=== PATIENT | female | born 1960 | race Caucasian/White ===

== ENCOUNTER 2017-08-31 01:32 | Inpatient (IN) | payer MEDICARE, MEDICAID ==
[~2017-08-31] VITALS: Ht 160 cm; Wt 124.7 kg
[2017-08-31 02:55] LABS: APPEARANCE HAZY (CLEAR); BACTERIA FEW /hpf (NONE SEEN); BILIRUBIN NEGATIVE (NEGATIVE); COLOR YELLOW (YELLOW); EPITHELIAL CELLS RARE /hpf (0-5); GLUCOSE NEGATIVE (NEGATIVE); KETONE NEGATIVE (NEGATIVE); NITRITE NEGATIVE (NEGATIVE); PROTEIN TRACE mg/dL (NEGATIVE); RED CELLS - URINE 0-5 /hpf (0-5); UROBILINOGEN NORMAL (NORMAL)
[2017-08-31 02:57] LABS: BASOPHILS 0.2 % (0-2); EOSINOPHILS 0.1 % (0-7); HEMATOCRIT 42.3 % (36.0-48.0); HEMOGLOBIN 13.6 g/dL (12-16); IMMATURE GRANULOCYTES 0.3 % (0-5); LYMPHOCYTES 6.4 % (15-50); MCH 29.4 pg (26.0-34.0); MCHC 32.2 g/dL (31.0-37.0); MCV 91.4 fL (80.0-100.0); MONOCYTES 1.1 % (2-11); NEUTROPHILS 91.9 % (40-80); PLATELET COUNT 247 10x3/uL (130-400); RBC 4.63 10x6/uL (4.00-5.40); RDW 15.6 % (11.5-14.5); WBC 13.1 10x3/uL (4.8-10.8)
[2017-08-31 03:22] LABS: ALBUMIN 2.9 g/dL (3.4-5.0); ALKALINE PHOSPHATASE 157 U/L (46-116); ALT (SGPT) 17 U/L (10-68); BILIRUBIN - TOTAL 0.27 mg/dL (0.2-1.3); CALC OSMOLALITY 289 mosm/kg (275-300); CALCIUM 8.6 mg/dL (8.5-10.1); CARBON DIOXIDE 27.2 mmol/L (21.0-32.0); CHLORIDE - SERUM 107 mmol/L (98-107); CREATININE - SERUM 1.3 mg/dL (0.6-1.3); GLUCOSE 136 mg/dL (74-106); POTASSIUM - SERUM 4.2 mmol/L (3.5-5.1); PROTEIN - SERUM 7.6 g/dL (6.4-8.2); SODIUM 142 mmol/L (136-145); UREA NITROGEN 26 mg/dL (7-18); eGFR NON AFRICAN AMERICAN 45 mL/min (90-120)
[2017-08-31 03:39] LABS: CREATINE KINASE 27 UL (21-215); PRO BNP 251 pg/mL (0-125)
[2017-08-31 03:45] LABS: TROPONIN-I < 0.017 ng/mL (0.000-0.060)
[2017-08-31] MEDS ORDERED: LEXAPRO10 MG PO (04:21)
[2017-08-31] MEDS ORDERED: SYMBICORT 16010.2 GM INH (04:22)
[2017-08-31] MEDS ORDERED: CATAPRES0.3 MG PO (04:22)
[2017-08-31] MEDS ORDERED: CARDURA8 MG PO (04:24)
[2017-08-31] MEDS ORDERED: INDOCIN25 MG PO (04:25)
[2017-08-31] MEDS ORDERED: ZANAFLEX6 MG PO (04:26)
[2017-08-31] MEDS ORDERED: LIPITOR80 MG PO (04:27)
[2017-08-31] MEDS ORDERED: PLAVIX75 MG PO (04:27)
[2017-08-31] MEDS ORDERED: DIOVAN320 MG PO (04:28)
[2017-08-31] MEDS ORDERED: COREG25 MG PO (04:28)
[2017-08-31] MEDS ORDERED: ATIVAN0.5 MG PO (04:28)
[2017-08-31] MEDS ORDERED: NITROSTAT0.4 MG SL (04:29)
[2017-08-31] MEDS ORDERED: MINITRAN TD (04:30)
[2017-08-31] MEDS ORDERED: LYRICA100 MG PO (04:44)
[2017-08-31 06:10] VITALS: BP 128/86; BMI 45.4
[2017-08-31 08:19] VITALS: BP 108/62
[2017-08-31 11:52] VITALS: BP 132/74
[2017-08-31 13:17] VITALS: Ht 160 cm; Wt 124.7 kg
[2017-08-31 13:31] LABS: CKMB 0.2 U/L (0.0-3.6); CREATINE KINASE 30 UL (21-215); TROPONIN-I < 0.017 ng/mL (0.000-0.060)
[2017-08-31 15:53] VITALS: BP 163/86
[2017-08-31 17:54] LABS: CKMB 0.2 U/L (0.0-3.6); CREATINE KINASE 32 UL (21-215); TROPONIN-I < 0.017 ng/mL (0.000-0.060)
[2017-08-31 20:34] VITALS: BP 165/89
[2017-09-01] VITALS (8 sets, daily range): BP systolic 124–200; BP diastolic 71–120
[2017-09-01 00:43] LABS: CKMB 0.5 U/L (0.0-3.6); CREATINE KINASE 28 UL (21-215); TROPONIN-I < 0.017 ng/mL (0.000-0.060)
[2017-09-01 01:40] LABS: CREATINE KINASE 26 UL (21-215); TROPONIN-I < 0.017 ng/mL (0.000-0.060)
[2017-09-01 04:08] LABS: BASOPHILS 0 % (0-2); EOSINOPHILS 0 % (0-7); HEMATOCRIT 38.2 % (36.0-48.0); HEMOGLOBIN 12.2 g/dL (12-16); IMMATURE GRANULOCYTES 0.3 % (0-5); LYMPHOCYTES 5.5 % (15-50); MCH 29.4 pg (26.0-34.0); MCHC 31.9 g/dL (31.0-37.0); MEAN PLATELET VOLUME 10.9 fL (7.4-10.4); MONOCYTES 2.8 % (2-11); NEUTROPHILS 91.4 % (40-80); PLATELET COUNT 243 10x3/uL (130-400); RBC 4.15 10x6/uL (4.00-5.40); RDW 15.7 % (11.5-14.5)
[2017-09-01 04:28] LABS: CREATINE KINASE 26 UL (21-215)
[2017-09-01 04:50] LABS: CALC OSMOLALITY 297 mosm/kg (275-300); CALCIUM 8.4 mg/dL (8.5-10.1); CARBON DIOXIDE 27.5 mmol/L (21.0-32.0); CHLORIDE - SERUM 112 mmol/L (98-107); CKMB 0.1 U/L (0.0-3.6); GLUCOSE 121 mg/dL (74-106); MAGNESIUM - SERUM 1.8 mg/dL (1.8-2.4); PHOSPHOROUS 2.7 mg/dL (2.5-4.9); SODIUM 147 mmol/L (136-145); UREA NITROGEN 27 mg/dL (7-18)
[2017-09-01 04:52] LABS: CREATININE - SERUM 0.7 mg/dL (0.6-1.3); TROPONIN-I < 0.017 ng/mL (0.000-0.060); eGFR NON AFRICAN AMERICAN > 90 mL/min (90-120)
[2017-09-02 02:06] VITALS: BP 166/74
[2017-09-02 06:01] VITALS: BP 170/88
[2017-09-02 06:52] LABS: BASOPHILS 0 % (0-2); EOSINOPHILS 0 % (0-7); HEMATOCRIT 37.9 % (36.0-48.0); HEMOGLOBIN 12.1 g/dL (12-16); IMMATURE GRANULOCYTES 0.7 % (0-5); LYMPHOCYTES 5.6 % (15-50); MCH 28.9 pg (26.0-34.0); MCHC 31.9 g/dL (31.0-37.0); MCV 90.7 fL (80.0-100.0); MEAN PLATELET VOLUME 10.8 fL (7.4-10.4); MONOCYTES 2.8 % (2-11); NEUTROPHILS 90.9 % (40-80); PLATELET COUNT 220 10x3/uL (130-400); RBC 4.18 10x6/uL (4.00-5.40); RDW 15.7 % (11.5-14.5); WBC 16.6 10x3/uL (4.8-10.8)
[2017-09-02 07:16] LABS: ALBUMIN 2.2 g/dL (3.4-5.0); ALKALINE PHOSPHATASE 108 U/L (46-116); ALT (SGPT) 16 U/L (10-68); BILIRUBIN - TOTAL 0.19 mg/dL (0.2-1.3); CALC OSMOLALITY 289 mosm/kg (275-300); CALCIUM 8.3 mg/dL (8.5-10.1); CHLORIDE - SERUM 109 mmol/L (98-107); CREATININE - SERUM 0.6 mg/dL (0.6-1.3); GLUCOSE 114 mg/dL (74-106); PROTEIN - SERUM 5.9 g/dL (6.4-8.2); SODIUM 143 mmol/L (136-145); UREA NITROGEN 25 mg/dL (7-18); eGFR NON AFRICAN AMERICAN > 90 mL/min (90-120)
[2017-09-02 07:24] LABS: POTASSIUM - SERUM 4.2 mmol/L (3.5-5.1)
[2017-09-02 08:53] VITALS: BP 177/109
[2017-09-02 11:45] VITALS: BP 108/69
[2017-09-02 20:00] VITALS: BP 169/90
[2017-09-03] VITALS: BP 156/80
[2017-09-03 04:00] VITALS: BP 180/98
[2017-09-03 05:27] LABS: BASOPHILS 0 % (0-2); EOSINOPHILS 0 % (0-7); HEMATOCRIT 40.3 % (36.0-48.0); HEMOGLOBIN 12.9 g/dL (12-16); IMMATURE GRANULOCYTES 1.2 % (0-5); LYMPHOCYTES 7.2 % (15-50); MCH 28.8 pg (26.0-34.0); MONOCYTES 3.2 % (2-11); NEUTROPHILS 88.4 % (40-80); PLATELET COUNT 236 10x3/uL (130-400); RBC 4.48 10x6/uL (4.00-5.40); RDW 15.7 % (11.5-14.5)
[2017-09-03 05:34] LABS: WBC 11.4 10x3/uL (4.8-10.8)
[2017-09-03 05:46] LABS: ALBUMIN 2.3 g/dL (3.4-5.0); ALKALINE PHOSPHATASE 108 U/L (46-116); ALT (SGPT) 19 U/L (10-68); CALC OSMOLALITY 291 mosm/kg (275-300); CALCIUM 8.2 mg/dL (8.5-10.1); CARBON DIOXIDE 27.1 mmol/L (21.0-32.0); CHLORIDE - SERUM 110 mmol/L (98-107); CREATININE - SERUM 0.7 mg/dL (0.6-1.3); GLUCOSE 107 mg/dL (74-106); POTASSIUM - SERUM 4.1 mmol/L (3.5-5.1); PROTEIN - SERUM 5.9 g/dL (6.4-8.2); SODIUM 143 mmol/L (136-145); UREA NITROGEN 31 mg/dL (7-18); eGFR NON AFRICAN AMERICAN > 90 mL/min (90-120)
[2017-09-03 07:59] VITALS: BP 177/106
[2017-09-03 11:48] VITALS: BP 186/88
[2017-09-03 15:46] VITALS: BP 195/119
[2017-09-03 20:28] VITALS: BP 148/88
[2017-09-04 01:30] VITALS: BP 180/108
[2017-09-04 04:00] VITALS: BP 119/61
[2017-09-04 05:50] LABS: BASOPHILS 0.1 % (0-2); EOSINOPHILS 0 % (0-7); HEMOGLOBIN 13.3 g/dL (12-16); IMMATURE GRANULOCYTES 1.6 % (0-5); LYMPHOCYTES 14.2 % (15-50); MCHC 32.4 g/dL (31.0-37.0); MCV 89.5 fL (80.0-100.0); MEAN PLATELET VOLUME 10.8 fL (7.4-10.4); MONOCYTES 8.8 % (2-11); NEUTROPHILS 75.3 % (40-80); PLATELET COUNT 209 10x3/uL (130-400); RBC 4.58 10x6/uL (4.00-5.40); RDW 15.8 % (11.5-14.5); WBC 10.8 10x3/uL (4.8-10.8)
[2017-09-04 06:26] LABS: ALBUMIN 2.2 g/dL (3.4-5.0); ALKALINE PHOSPHATASE 100 U/L (46-116); ALT (SGPT) 21 U/L (10-68); BILIRUBIN - TOTAL 0.25 mg/dL (0.2-1.3); CALC OSMOLALITY 287 mosm/kg (275-300); CALCIUM 8.5 mg/dL (8.5-10.1); CARBON DIOXIDE 29.9 mmol/L (21.0-32.0); CHLORIDE - SERUM 107 mmol/L (98-107); CREATININE - SERUM 0.7 mg/dL (0.6-1.3); GLUCOSE 99 mg/dL (74-106); POTASSIUM - SERUM 4.1 mmol/L (3.5-5.1); PROTEIN - SERUM 5.5 g/dL (6.4-8.2); SODIUM 141 mmol/L (136-145); UREA NITROGEN 32 mg/dL (7-18); eGFR NON AFRICAN AMERICAN > 90 mL/min (90-120)
[2017-09-04 07:44] VITALS: BP 131/79
[2017-09-04] MEDS ORDERED: LEVAQUIN750 MG PO (10:00)
[2017-09-04] MEDS ORDERED: HYDRALAZINE HCL50 MG PO (10:01)
[2017-09-04] MEDS ORDERED: PROTONIX40 MG PO (10:01)
[2017-09-04] MEDS ORDERED: STERAPRED DS 1010 MG PO (10:02)
[2017-09-04 11:43] VITALS: BP 118/57
== END 2017-09-04 16:10 | disposition home or self-care (01) | DRG 689 ==
LOC: D.ER 01:32 → D.M2 03:22 → D.MS 03:22 → D.M2 09:55 → D.SDCHOLD 09-03 16:09 → D.M2 09-04 16:10
PROVIDERS: Family Medicine
DX: N39.0 Urinary tract infection, site not specified (principal); J18.9 Pneumonia, unspecified organism; N17.9 Acute kidney failure, unspecified; I10 Essential (primary) hypertension; I25.10 Atherosclerotic heart disease of native coronary artery without angina pectoris; G47.33 Obstructive sleep apnea (adult) (pediatric); F41.9 Anxiety disorder, unspecified; K57.90 Diverticulosis of intestine, part unspecified, without perforation or abscess without bleeding; E78.5 Hyperlipidemia, unspecified; Z86.73 Personal history of transient ischemic attack (TIA), and cerebral infarction without residual deficits